=== PATIENT | female | born 1950 | race Native Hawaiian/Other Pacific Islander ===

== ENCOUNTER 2016-08-20 10:19 | Outpatient (CLI) | payer OTHER ==
[2016-08-20 11:04] LABS: PLATELET COUNT 136 K/uL (152-353)
[2016-08-20 11:14] LABS: POTASSIUM 3.3 mmol/L (3.6-5.2)
== END 2016-08-20 19:15 | disposition home or self-care (01) ==
LOC: LABW 10:19
PROVIDERS: Nurse Practitioner
DX: R06.02 Shortness of breath (principal); R05 Cough
CPT/HCPCS: 36415; 80053; 85027; 85379; 85651; 86140; 86738

== ENCOUNTER 2016-08-21 21:50 | Inpatient (IN) | payer OTHER ==
[~2016-08-21] VITALS: Ht 149.9 cm; Wt 76.4 kg
[2016-08-21 22:00] VITALS: BP 154/79; TEMP 98.2
[2016-08-21 23:24] LABS: PLATELET COUNT 117 K/uL (152-353)
[2016-08-21 23:28] LABS: POTASSIUM 3.9 mmol/L (3.6-5.2)
[2016-08-22 04:00] VITALS: BP 164/52; TEMP 97.8
[2016-08-22 04:23] VITALS: BP 164/52; TEMP 97.8; Ht 149.9 cm; Wt 76.4 kg
[2016-08-22] MEDS ORDERED: DEXILANT60 M1 OR (05:54)
[2016-08-22] MEDS ORDERED: METOPROLOL25 M1 OR (05:55)
[2016-08-22] MEDS ORDERED: METFTAB PO (05:56)
[2016-08-22] MEDS ORDERED: GLIP10TA55 PO (05:57)
[2016-08-22] MEDS ORDERED: COZAAR25 MG PO (05:59)
[2016-08-22] MEDS ORDERED: PAROXETINE40 MG OR (06:00)
[2016-08-22] MEDS ORDERED: LOFIBRA160 MG OR (06:00)
[2016-08-22] MEDS ORDERED: TOPI100T (06:01)
[2016-08-22] MEDS ORDERED: BUDE1AER5 INH (06:02)
[2016-08-22] MEDS ORDERED: UNITH DIRECT50 MCG PO (06:03)
[2016-08-22] MEDS ORDERED: SIMV40TA57 (06:04)
[2016-08-22] MEDS ORDERED: AMBIEN5 MG PO (06:04)
[2016-08-22] MEDS ORDERED: AMIT25TA22 PO (06:05)
[2016-08-22] MEDS ORDERED: MONT10TA PO (06:05)
[2016-08-22] MEDS ORDERED: NEURONTIN800 MG PO (06:08)
[2016-08-22 06:57] LABS: PLATELET COUNT 104 K/uL (152-353)
[2016-08-22 07:28] LABS: POTASSIUM 2.9 mmol/L (3.6-5.2)
[2016-08-22 08:00] VITALS: BP 134/64; BP 139/77; TEMP 98.1; TEMP 98.4
[2016-08-22 12:00] VITALS: BP 126/59; TEMP 98.6
[2016-08-22 16:00] VITALS: BP 136/62; TEMP 98.2
[2016-08-22 20:00] VITALS: BP 141/64; TEMP 98.2
[2016-08-23] VITALS: BP 127/58; TEMP 97.6
[2016-08-23 04:00] VITALS: BP 129/57; TEMP 97.4
[2016-08-23 05:13] LABS: PLATELET COUNT 115 K/uL (152-353)
[2016-08-23 05:28] LABS: POTASSIUM 4.7 mmol/L (3.6-5.2)
[2016-08-23 08:00] VITALS: BP 153/90; TEMP 98
[2016-08-23 12:00] VITALS: BP 167/71; TEMP 98.2
[2016-08-23 16:00] VITALS: BP 151/68; TEMP 98
[2016-08-23 20:00] VITALS: BP 136/60; TEMP 98.3
[2016-08-24 00:28] VITALS: BP 151/65; TEMP 97.7
[2016-08-24 04:00] VITALS: BP 143/81; TEMP 97.8
[2016-08-24 04:49] LABS: PLATELET COUNT 128 K/uL (152-353)
[2016-08-24 04:55] LABS: POTASSIUM 3.5 mmol/L (3.6-5.2)
[2016-08-24 08:00] VITALS: BP 146/59; TEMP 97.7
[2016-08-24 12:21] VITALS: BP 163/86; TEMP 97.9
[2016-08-24 16:00] VITALS: BP 144/80; TEMP 98.3
[2016-08-24 20:00] VITALS: BP 143/66; TEMP 98
[2016-08-25 00:24] VITALS: BP 172/90; TEMP 98
[2016-08-25 05:08] VITALS: BP 161/84; TEMP 97.6
[2016-08-25 06:01] LABS: POTASSIUM 4.6 mmol/L (3.6-5.2)
[2016-08-25 06:22] LABS: PLATELET COUNT 129 K/uL (152-353)
[2016-08-25 08:00] VITALS: BP 138/71; TEMP 98
[2016-08-25 12:00] VITALS: BP 156/84; TEMP 98
[2016-08-25 16:00] VITALS: BP 142/67; TEMP 98.7
[2016-08-25 19:57] VITALS: BP 152/75; TEMP 98
[2016-08-26] VITALS: BP 150/78; TEMP 97.7
[2016-08-26 04:56] LABS: PLATELET COUNT 151 K/uL (152-353)
[2016-08-26 05:29] VITALS: BP 135/66; TEMP 97.8
[2016-08-26 08:19] VITALS: BP 179/77; TEMP 97.6
[2016-08-26 12:00] VITALS: BP 171/79; TEMP 98
== END 2016-08-26 15:25 | disposition home health service (06) | DRG 191 ==
LOC: ED 21:50 → MED/SURG 08-22 00:25 → ICU 08-22 00:25 → ED 08-22 00:25 → ICU 08-22 02:53 → MED/SURG 08-26 15:25
PROVIDERS: Internal Medicine; ADMIT Emergency Medicine
DX: J44.1 Chronic obstructive pulmonary disease with (acute) exacerbation (principal); D61.818 Other pancytopenia; E11.65 Type 2 diabetes mellitus with hyperglycemia; E87.6 Hypokalemia; R55 Syncope and collapse; E83.42 Hypomagnesemia; S50.311A Abrasion of right elbow, initial encounter; W17.89XA Other fall from one level to another, initial encounter; Y93.89 Activity, other specified; Y92.89 Other specified places as the place of occurrence of the external cause; S50.12XA Contusion of left forearm, initial encounter; S60.222A Contusion of left hand, initial encounter; R06.02 Shortness of breath; R05 Cough
CPT/HCPCS: 36415; 80048; 80053; 81000; 82550; 82553; 82607; 82747; 82947; 82948; 83615; 83735; 83880; 84443; 84484; 84550; 85027; 85044; 85379; 85651; 86039; 86140; 86738; 87804; 93005; 93306; 94640; 94664; 94760; 96361; 96367; 96372; 96374; 96375; 99284; J1650; J1815; J2175; J2270; J2405; J2930; J3475; J3480

== ENCOUNTER 2017-07-27 23:40 | Emergency (ER) | payer OTHER ==
[~2017-07-27] VITALS: Ht 149.9 cm; Wt 78.9 kg
[~2017-07-27 23:40] MED LIST: AMBIEN5 MG PO; AMIT25TA22 PO; BUDE1AER5 INH; COZAAR25 MG PO; DEXILANT60 M1 OR; GLIP10TA55 PO; LOFIBRA160 MG OR; METFTAB PO; METOPROLOL25 M1 OR; MONT10TA PO; NEURONTIN800 MG PO; PAROXETINE40 MG OR; SIMV40TA57; TOPI100T; UNITH DIRECT50 MCG PO
[2017-07-28 00:21] LABS: PLATELET COUNT 155 K/uL (152-353)
[2017-07-28 00:29] LABS: POTASSIUM 3.6 mmol/L (3.6-5.2)
[2017-07-28 00:58] VITALS: BP 145/72; TEMP 97.5
== END 2017-07-28 01:03 | disposition home or self-care (01) ==
LOC: ED 23:40
DX: K52.89 Other specified noninfective gastroenteritis and colitis (principal)
CPT/HCPCS: 36415; 74022; 80053; 81000; 85027; 96365; 96374; 99284; J2405

== ENCOUNTER 2018-01-03 15:56 | Emergency (ER) | payer OTHER ==
[~2018-01-03] VITALS: Ht 149.9 cm; Wt 76.2 kg
[2018-01-03] MEDS ORDERED: DILAUDID8 MG PO (16:07)
[2018-01-03 16:08] VITALS: BP 177/85; TEMP 97.9
== END 2018-01-03 16:17 ==
LOC: ED 15:56
DX: M54.89 Other dorsalgia (principal); M25.551 Pain in right hip
CPT/HCPCS: 99281

== ENCOUNTER 2019-12-16 13:06 | Outpatient (CLI) | payer OTHER ==
[~2019-12-16 13:06] MED LIST changes: +DILAUDID8 MG PO
== END 2019-12-16 14:17 | disposition home or self-care (01) ==
LOC: MRI 13:06
PROVIDERS: ATTEND Neurological Surgery
DX: M47.27 Other spondylosis with radiculopathy, lumbosacral region (principal)

== ENCOUNTER 2021-04-23 09:33 | Outpatient (CLI) | payer OTHER | END 2021-04-23 21:00 | disposition home or self-care (01) | LOC: RAD 09:33 | PROVIDERS: ATTEND Internal Medicine | DX: M89.8X8 Other specified disorders of bone, other site (principal); Z13.820 Encounter for screening for osteoporosis; N95.8 Other specified menopausal and perimenopausal disorders ==

== ENCOUNTER 2022-12-17 09:16 | Outpatient (CLI) | payer OTHER ==
[2022-12-17 09:48] LABS: PLATELET COUNT 106 K/uL (152-353)
== END 2022-12-17 21:14 | disposition home or self-care (01) ==
LOC: LABW 09:16
PROVIDERS: ATTEND Internal Medicine Gastroenterology
DX: R94.5 Abnormal results of liver function studies (principal); K76.0 Fatty (change of) liver, not elsewhere classified
CPT/HCPCS: 36415; 80074; 80076; 82103; 82172; 82247; 82390; 82465; 82525; 82728; 82947; 82977; 83010; 83516; 83550; 83883; 84450; 84460; 84478; 85027; 85610; 86038

== ENCOUNTER 2022-12-23 08:29 | Outpatient (CLI) | payer OTHER | END 2022-12-23 21:51 | disposition home or self-care (01) | LOC: US 08:29 | PROVIDERS: ATTEND Internal Medicine Gastroenterology | DX: R94.5 Abnormal results of liver function studies (principal) ==